=== PATIENT | female | born 1965 | race Caucasian/White ===

== ENCOUNTER 2016-08-17 18:14 | Emergency (ER) | payer BC, OTHER ==
[2016-08-17] MEDS ORDERED: Morphine 10 MG/ML Syringe SUBCUT ONE (18:41)
--- NOTE | 2016-08-17 18:47 | EDM.PDOC ---
ED HPI Trauma - General Chief Complaint: Upper Extremity Injury/Pain Stated Complaint: Fall, Left shoulder, wrist, rib pain Time Seen by Provider: 08/17/16 18:20 Source: Reports: Patient History Limitations: Reports: No limitations - History of Present Illness INITIAL COMMENTS - FREE TEXT/NARRATIVE: The patient presents with complaint of pain of her left clavicle and left chest/ ribs after a fall. She reports she was walking her dog with her and the dog wrapped around their legs and took off and she fell onto her left side with immediate pain of her left clavicle and left chest wall. She denies a blow to the head, LOC, headache, nausea or vomiting, pain of neck or back. Pain of abdomen, pelvis, or hips, and pain of other extremities. She denies other symptoms or complaints. Allergies/ADRs: Allergies dicyclomine [From Bentyl] Allergy (Verified 08/17/16 19:10) Burning Home Medications: Ambulatory Orders Aspirin 81 mg PO DAILY 08/17/16 [Confirmed 08/17/16] DULoxetine [Cymbalta] 60 mg PO BEDTIME 08/17/16 [Confirmed 08/17/16] Gabapentin [Neurontin] 300 mg PO BEDTIME 08/17/16 [Confirmed 08/17/16] Inulin/Chromium Picolinate [Fiber Gummies] 1 tab PO DAILY 08/17/16 [Confirmed ] Lansoprazole [Prevacid] 30 mg PO QAM 08/17/16 [Confirmed 08/17/16] Multivitamin [Gummi Bear Multivitamin] 1 tab PO DAILY 08/17/16 [Confirmed ] Sennosides [Senna] 1 tab PO DAILY 08/17/16 [Confirmed 08/17/16] Review of Systems - Review of Systems Review Of Systems: ROS reveals no pertinent complaints other than HPI. Trauma Exam - Physical Exam Exam: See Below Exam Limited By: No limitations General Appearance: Reports: alert, WD/WN, no apparent distress, other (At times in moderately severe pain and has to reposition her left arm.) Head: Reports: atraumatic, normocephalic. Denies: scalp lacerations, scalp swelling, scalp abrasions, scalp hematoma, scalp tenderness, Chaves's Sign, facial abrasions, facial lacerations, facial swelling, sinus tenderness, facial tenderness, raccoon eyes Eyes: bilateral eye: EOMI, normal inspection, PERRL Ears: Reports: normal external exam, normal canal, hearing grossly normal, normal TMs. Denies: auricular tenderness, mastoid swelling, mastoid tenderness , TM bulging, TM dullness, TM erythema, TM blood, TM fluid Nose: Reports: normal inspection, normal mucousa, no blood Throat/Mouth: Reports: Normal inspection, Normal lips, Normal teeth, Normal gums , Normal oropharynx, Normal voice, No airway compromise Neck: Reports: non-tender, full range of motion, normal alignment, normal inspection. Denies: paraspinous muscle tender, spinous processes tender, stiff neck, tender lateral, tender midline Respiratory Exam: Reports: no respiratory distress, lungs clear, normal breath sounds, no accessory muscle use, other (Pain on palpation of left clavicle and slight deformity in middle of clavicle. Pain diffusely on palpation of left lateral ribs but no visible or palpable defects. No abrasions, contusions, lacerations, or hematomas. ) Cardiovascular: Reports: normal peripheral pulses, regular rate, rhythm, no edema, no gallop, no murmur, no rub GI/Abdominal: Reports: normal bowel sounds, soft, non tender, no organomegaly. Denies: rigid, guarding, rebound Back: Reports: full range of motion. Denies: CVA tenderness (R), CVA tenderness (L), paraspinal tenderness, vertebral tenderness Extremities: Reports: no evidence of injury, normal range of motion, non-tender , no pedal edema, other (No pain on palpation of pelvis or hips and no visible or palpable defects. No pain on palpation of bilateral shoulders. No pain on palpation of arms or legs. No visible or palpable defects. Mild superficial nonbleeding abrasions noted on bilateral elbows and left knee. 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, no motor/sensory deficits, alert , normal mood/affect, oriented x 3 Skin: Reports: Normal color, Warm/dry Course - Vital Signs Last Recorded V/S: Last Vital Signs Temp 36.6 C 08/17/16 19:41 Pulse 73 08/17/16 19:41 Resp 20 08/17/16 19:41 BP 168/99 H 08/17/16 20:04 Pulse Ox 98 08/17/16 19:41 - Orders/Labs/Meds Orders: Active Orders 24 hr Category Date Time Status Cooling Warming Measures [RC] ASDIRECTED Care 08/17/16 18:41 Active Clavicle Lt [CR] Stat Exams 08/17/16 18:39 Taken Ribs 2V w Chest Lt [CR] Stat Exams 08/17/16 18:40 Taken Ice Bag [Ice Therapy] [OM.PC] Routine Oth 08/17/16 18:41 Ordered Meds: Medications Discontinued Medications Generic Name Dose Route Start Last Admin Trade Name Larry PRN Reason Stop Dose Admin Morphine Sulfate 4 mg 08/17/16 18:41 08/17/16 19:25 Morphine SUBCUT 08/17/16 18:42 4 mg ONETIME ONE Administration - Radiology Interpretation Free Text/Narrative:: XR of left clavicle shows minimally diplaced fracture of midshaft of the clavicle. CXR with 2 view left rib series shows no fractures or dislocations and no pneumothorax. Departure - Departure Time of Disposition: 19:50 Disposition: Home, Self-Care 01 Condition: good Clinical Impression: Closed left clavicular fracture Qualifiers: Encounter type: initial encounter Clavicle location: shaft Fracture alignment: nondisplaced Qualified Code(s): S42.025A - Nondisplaced fracture of shaft of left clavicle, initial encounter for closed fracture Left rib fracture Qualifiers: Encounter type: initial encounter Rib fracture type: single rib Instructions: Clavicle Fracture, [id number], Chest Contusion, [id number] Referrals: PCP,Not In Area [Primary Care Provider] - Forms: ED Department Discharge Additional Instructions: 1. Morphine 4 mg SQ in ER. 2. Ice applied in ER. 3. Fitted with left shoulder immobilizer. 4. Take-home prescription for Percocet 5/325 mg tab, 1 tab, take as needed for moderate to moderately severe pain after midnight on 08/18/16. 5. Prescription for Percocet 5/325 mg tabs, 1 tab every 6 hours as needed for moderate to moderately severe pain, 12 tabs, 0 refills. 6. OTC acetaminophen 325-1,000 mg every 6 hours as needed for mild pain. 7. Ice affected clavicle in 20 minute cycles every 1-2 hours as able and as tolerated. 8. Wear immobilizer at all times other than for showering and hygiene. 9. No lifting with left arm until cleared by orthopedic surgery. 10. Followup with orthopedic surgery for next available for minimally displaced left clavicle midshaft fracture. 11. Return to ER with severe uncontrolled pain, refractory chest pain, difficulty breathing, or other emergent concerns. - My Orders Last 24 Hours: My Active Orders 08/17/16 18:39 Clavicle Lt [CR] Stat 08/17/16 18:40 Ribs 2V w Chest Lt [CR] Stat 08/17/16 18:41 Cooling Warming Measures [RC] ASDIRECTED Ice Bag [Ice Therapy] [OM.PC] Routine - Assessment/Plan Last 24 Hours: My Active Orders 08/17/16 18:39 Clavicle Lt [CR] Stat 08/17/16 18:40 Ribs 2V w Chest Lt [CR] Stat 08/17/16 18:41 Cooling Warming Measures [RC] ASDIRECTED Ice Bag [Ice Therapy] [OM.PC] Routine Assessment:: Closed left clavicle midshaft fracture with minimal displacement. Left 7th rib fracture. Plan: 1. Morphine 4 mg SQ in ER. 2. Ice applied in ER. 3. Fitted with left shoulder immobilizer. 4. Given rib belt to wear as needed for comfort. 5. Take-home prescription for Percocet 5/325 mg tab, 1 tab, take as needed for moderate to moderately severe pain after midnight on 08/18/16. 6. Prescription for Percocet 5/325 mg tabs, 1 tab every 6 hours as needed for moderate to moderately severe pain, 12 tabs, 0 refills. 7. OTC acetaminophen 325-1,000 mg every 6 hours as needed for mild pain. 8. Ice affected clavicle in 20 minute cycles every 1-2 hours as able and as tolerated. 9. Wear immobilizer at all times other than for showering and hygiene. 10. No lifting with left arm until cleared by orthopedic surgery. 11. Followup with orthopedic surgery for next available for minimally displaced left clavicle midshaft fracture. 12. Return to ER with severe uncontrolled pain, refractory chest pain, difficulty breathing, or other emergent concerns.
[2016-08-17 20:05] VITALS: BP 168/99
[2016-08-17] MEDS ORDERED: Acetaminophen/oxyCODONE 325-5 MG Tab PO ONE (20:37)
== END 2016-08-17 20:50 | disposition home or self-care (01) ==
LOC: LL.ED 18:14 → MERGE 18:14 → LL.ED 20:50
DX: S22.32XA Fracture of one rib, left side, initial encounter for closed fracture (principal); S42.025A Nondisplaced fracture of shaft of left clavicle, initial encounter for closed fracture; S50.312A Abrasion of left elbow, initial encounter; S50.311A Abrasion of right elbow, initial encounter; S80.212A Abrasion, left knee, initial encounter; Z88.8 Allergy status to other drugs, medicaments and biological substances; Z79.82 Long term (current) use of aspirin; Z79.4 Long term (current) use of insulin; Z79.899 Other long term (current) drug therapy; W19.XXXA Unspecified fall, initial encounter
CPT/HCPCS: 71101; 73000; 96372; 99283; J2270; 23500; A9270-GY